=== PATIENT | male | born 1935 | race Caucasian/White ===

== ENCOUNTER 2021-02-07 12:17 | Inpatient (IN) | payer OTHER ==
[~2021-02-07] VITALS: Ht 180.3 cm; Wt 95.3 kg
[2021-02-07] MEDS ORDERED: ALLOPURINOL300 MG PO (13:17)
[2021-02-07] MEDS ORDERED: ZOCOR20 MG PO (13:17)
[2021-02-07] MEDS ORDERED: ZESTRIL20 MG PO (13:18)
[2021-02-07] MEDS ORDERED: HYDROCHLOROTHIAZ1 GM PO (13:18)
[2021-02-12] MEDS ORDERED: SYNTHROID50 MCG (08:14)
[2021-02-12] MEDS ORDERED: AMLODIPINE BESYL5 MG (08:14)
[2021-02-12] MEDS ORDERED: CLONAZEPAM0.5 MG (08:14)
[2021-03-02] MEDS ORDERED: GABAPENTIN100 MG PO (13:15)
[2021-03-02] MEDS ORDERED: POLY119PG PO (13:17)
== END 2021-03-02 14:36 | disposition home or self-care (01) | DRG 190 ==
LOC: ER 12:17 → SEC-K 21:00 → ICU 21:00 → ICU-2 21:00 → ICU 02-10 18:51 → SURH 02-14 17:58
PROVIDERS: ADMIT Internal Medicine; ATTEND Internal Medicine
PROC: B24BYZZ Ultrasonography of Heart with Aorta using Other Contrast (ICD-10-PCS; 2021-02-07)
PROC: BW24ZZZ Computerized Tomography (CT Scan) of Chest and Abdomen (ICD-10-PCS; 2021-02-07)
PROC: 3E0F7SF Introduction of Other Gas into Respiratory Tract, Via Natural or Artificial Opening (ICD-10-PCS; 2021-02-08)
PROC: 0FB13ZX Excision of Right Lobe Liver, Percutaneous Approach, Diagnostic (ICD-10-PCS; principal; 2021-02-09)
PROC: 0F9130Z Drainage of Right Lobe Liver with Drainage Device, Percutaneous Approach (ICD-10-PCS; 2021-02-09)
PROC: 02HV33Z Insertion of Infusion Device into Superior Vena Cava, Percutaneous Approach (ICD-10-PCS; 2021-02-09)
PROC: BG44ZZZ Ultrasonography of Thyroid Gland (ICD-10-PCS; 2021-02-11)
PROC: 4A12X4Z Monitoring of Cardiac Electrical Activity, External Approach (ICD-10-PCS; 2021-02-14)
PROC: BW2110Z Computerized Tomography (CT Scan) of Abdomen and Pelvis using Low Osmolar Contrast, Unenhanced and Enhanced (ICD-10-PCS; 2021-02-17)
PROC: 0F9130Z Drainage of Right Lobe Liver with Drainage Device, Percutaneous Approach (ICD-10-PCS; 2021-02-18)
PROC: BW2110Z Computerized Tomography (CT Scan) of Abdomen and Pelvis using Low Osmolar Contrast, Unenhanced and Enhanced (ICD-10-PCS; 2021-02-25)
DX: J44.1 Chronic obstructive pulmonary disease with (acute) exacerbation (principal); K75.0 Abscess of liver; N39.0 Urinary tract infection, site not specified; Z16.12 Extended spectrum beta lactamase (ESBL) resistance; B96.20 Unspecified Escherichia coli [E. coli] as the cause of diseases classified elsewhere; R53.81 Other malaise; K76.9 Liver disease, unspecified; D64.9 Anemia, unspecified; I11.9 Hypertensive heart disease without heart failure; Z95.828 Presence of other vascular implants and grafts; Z85.819 Personal history of malignant neoplasm of unspecified site of lip, oral cavity, and pharynx; Z85.038 Personal history of other malignant neoplasm of large intestine; Z85.46 Personal history of malignant neoplasm of prostate; Z20.822 Contact with and (suspected) exposure to COVID-19

== ENCOUNTER 2021-04-11 07:57 | Outpatient (CLI) | payer OTHER ==
[~2021-04-11 07:57] MED LIST: ALLOPURINOL300 MG PO; AMLODIPINE BESYL5 MG; CLONAZEPAM0.5 MG; GABAPENTIN100 MG PO; HYDROCHLOROTHIAZ1 GM PO; POLY119PG PO; SYNTHROID50 MCG; ZESTRIL20 MG PO; ZOCOR20 MG PO
== END 2021-04-11 12:04 | disposition home or self-care (01) ==
LOC: NUCLEAR 07:57
DX: C19 Malignant neoplasm of rectosigmoid junction (principal); C61 Malignant neoplasm of prostate; C32.0 Malignant neoplasm of glottis
CPT/HCPCS: 78815; A9552

== ENCOUNTER 2021-06-14 10:46 | Inpatient (IN) | payer OTHER ==
[~2021-06-14] VITALS: Ht 180.3 cm; Wt 86.2 kg
[2021-06-14] MEDS ORDERED: ZOCOR20 MG PO (11:41)
[2021-07-11] MEDS ORDERED: AMLODIPINE BESY10 MG PO (12:43)
[2021-07-11] MEDS ORDERED: ZOCOR20 MG PO (12:43)
[2021-07-11] MEDS ORDERED: HYDRALAZINE HCL50 MG PO (12:44)
[2021-07-11] MEDS ORDERED: GABAPENTIN100 MG PO (12:44)
[2021-07-11] MEDS ORDERED: INTESTINEX680 M1 PO (12:45)
[2021-07-11] MEDS ORDERED: FOLIC ACID1 MG PO (12:46)
[2021-07-11] MEDS ORDERED: PANTOPRAZOLE SO40 MG PO (12:46)
[2021-07-11] MEDS ORDERED: LEVOTHYROXINE75 MCG PO (12:46)
[2021-07-11] MEDS ORDERED: VITAMIN B-121000 MC2 SL (12:47)
[2021-07-11] MEDS ORDERED: INTEGRA CAPSUL1 EACH PO (12:49)
== END 2021-07-11 14:55 | disposition home or self-care (01) | DRG 378 ==
LOC: ER 10:46 → MEDJ 18:33 → MEDI 18:33 → ICU 06-16 20:26 → MEDI 07-03 20:05 → SURH 07-04 14:55
PROVIDERS: ADMIT Internal Medicine; ATTEND Internal Medicine
PROC: 30233N1 Transfusion of Nonautologous Red Blood Cells into Peripheral Vein, Percutaneous Approach (ICD-10-PCS; principal; 2021-06-15)
PROC: 4A12X4Z Monitoring of Cardiac Electrical Activity, External Approach (ICD-10-PCS; 2021-06-16)
PROC: 02HV33Z Insertion of Infusion Device into Superior Vena Cava, Percutaneous Approach (ICD-10-PCS; 2021-06-18)
PROC: 0DJD8ZZ Inspection of Lower Intestinal Tract, Via Natural or Artificial Opening Endoscopic (ICD-10-PCS; 2021-06-19)
PROC: 0DB98ZX Excision of Duodenum, Via Natural or Artificial Opening Endoscopic, Diagnostic (ICD-10-PCS; 2021-06-19)
PROC: 3E0G8GC Introduction of Other Therapeutic Substance into Upper GI, Via Natural or Artificial Opening Endoscopic (ICD-10-PCS; 2021-06-19)
PROC: CD171ZZ Planar Nuclear Medicine Imaging of Gastrointestinal Tract using Technetium 99m (Tc-99m) (ICD-10-PCS; 2021-06-21)
DX: K62.5 Hemorrhage of anus and rectum (principal); N17.8 Other acute kidney failure; D62 Acute posthemorrhagic anemia; Z16.12 Extended spectrum beta lactamase (ESBL) resistance; N39.0 Urinary tract infection, site not specified; E87.0 Hyperosmolality and hypernatremia; K22.11 Ulcer of esophagus with bleeding; E86.0 Dehydration; B96.20 Unspecified Escherichia coli [E. coli] as the cause of diseases classified elsewhere; I44.1 Atrioventricular block, second degree

== ENCOUNTER 2022-01-21 08:00 | Outpatient (CLI) | payer OTHER ==
[~2022-01-21 08:00] MED LIST changes: +AMLODIPINE BESY10 MG PO; +FOLIC ACID1 MG PO; +HYDRALAZINE HCL50 MG PO; +INTEGRA CAPSUL1 EACH PO; +INTESTINEX680 M1 PO; +LEVOTHYROXINE75 MCG PO; +PANTOPRAZOLE SO40 MG PO; +VITAMIN B-121000 MC2 SL
== END 2022-01-21 08:30 | disposition home or self-care (01) ==
LOC: PPH VACUNA 08:00
PROVIDERS: ATTEND Emergency Medicine Pediatric Emergency Medicine
DX: Z23 Encounter for immunization (principal)

== ENCOUNTER 2022-01-21 08:41 | Outpatient (CLI) | payer OTHER | END 2022-01-21 08:47 | disposition home or self-care (01) | LOC: NUCLEAR 08:41 | DX: C61 Malignant neoplasm of prostate (principal) | CPT/HCPCS: 78306; A9503 ==

== ENCOUNTER 2022-03-25 08:30 | Outpatient (CLI) | payer OTHER | END 2022-03-25 08:31 | disposition home or self-care (01) | LOC: NUCLEAR 08:30 | PROVIDERS: ATTEND Internal Medicine | DX: N18.30 Chronic kidney disease, stage 3 unspecified (principal); R60.0 Localized edema; R91.8 Other nonspecific abnormal finding of lung field ==

== ENCOUNTER 2022-09-11 12:53 | Outpatient (CLI) | payer OTHER | END 2022-09-11 13:03 | disposition home or self-care (01) | LOC: PPH VACUNA 12:53 | PROVIDERS: ATTEND Emergency Medicine Pediatric Emergency Medicine | DX: Z23 Encounter for immunization (principal) ==

== ENCOUNTER 2023-06-04 09:49 | Inpatient (IN) | payer OTHER ==
[~2023-06-04] VITALS: Ht 180.3 cm; Wt 90.7 kg
== END 2023-06-10 10:41 | disposition home or self-care (01) | DRG 314 ==
LOC: ER 09:49 → MEDJ 17:31
PROVIDERS: Emergency Medicine; Surgery; ADMIT Internal Medicine; ATTEND Internal Medicine
PROC: BW21YZZ Computerized Tomography (CT Scan) of Abdomen and Pelvis using Other Contrast (ICD-10-PCS; 2023-06-04)
PROC: 4A12X4Z Monitoring of Cardiac Electrical Activity, External Approach (ICD-10-PCS; 2023-06-04)
PROC: B24BZZZ Ultrasonography of Heart with Aorta (ICD-10-PCS; 2023-06-05)
PROC: 02PYX3Z Removal of Infusion Device from Great Vessel, External Approach (ICD-10-PCS; principal; 2023-06-09 21:30)
DX: T80.218A Other infection due to central venous catheter, initial encounter (principal); A41.9 Sepsis, unspecified organism; I50.20 Unspecified systolic (congestive) heart failure; I13.0 Hypertensive heart and chronic kidney disease with heart failure and stage 1 through stage 4 chronic kidney disease, or unspecified chronic kidney disease; I11.0 Hypertensive heart disease with heart failure; I35.0 Nonrheumatic aortic (valve) stenosis; E03.9 Hypothyroidism, unspecified; N18.9 Chronic kidney disease, unspecified; J44.9 Chronic obstructive pulmonary disease, unspecified; K80.20 Calculus of gallbladder without cholecystitis without obstruction; K57.30 Diverticulosis of large intestine without perforation or abscess without bleeding

== ENCOUNTER 2023-06-18 10:49 | Outpatient (CLI) | payer OTHER | END 2023-06-18 10:56 | disposition home or self-care (01) | LOC: RAD 10:49 | PROVIDERS: ATTEND Internal Medicine | DX: R09.89 Other specified symptoms and signs involving the circulatory and respiratory systems (principal) ==

== ENCOUNTER 2023-07-23 07:29 | Outpatient (CLI) | payer OTHER | END 2023-07-23 07:31 | disposition home or self-care (01) | LOC: NUCLEAR 07:29 | PROVIDERS: ATTEND Internal Medicine Hematology & Oncology | DX: C61 Malignant neoplasm of prostate (principal); C32.0 Malignant neoplasm of glottis; C18.9 Malignant neoplasm of colon, unspecified | CPT/HCPCS: 78815; A9552 ==

== ENCOUNTER 2023-12-18 10:19 | Outpatient (CLI) | payer OTHER | END 2023-12-18 10:29 | disposition home or self-care (01) | LOC: TOM 10:19 | PROVIDERS: ATTEND Internal Medicine | DX: J84.112 Idiopathic pulmonary fibrosis (principal) ==